=== PATIENT | male | born 1960 | race Caucasian/White ===

== ENCOUNTER → 2018-11-13 | Outpatient (CLI) | payer OTHER ==
--- NOTE | 2018-11-13 15:12 | Diagnostic Imaging Report ---
Right shoulder radiographs-2 views HISTORY: Chronic right shoulder pain. COMPARISON: None FINDINGS: Bones: No evidence of acute fracture or malalignment. Joints: Mild degenerative changes of the right glenohumeral and acromioclavicular joints with joint space narrowing. Soft tissues: The soft tissues appear unremarkable. IMPRESSION: No acute osseous abnormality. Mild right glenohumeral and AC joint osteoarthritis. Signed by: Dr. Lizeth Lindsay MD on 11/13/2018 3:09 PM
--- NOTE | 2018-11-13 15:14 | Diagnostic Imaging Report ---
HIP RIGHT 2-3 VW (+/- PELVIS) - 3 views HISTORY: Pain COMPARISON: None available. FINDINGS: See impression. IMPRESSION: No acute fracture or dislocation of the right hip. Degenerative changes of bilateral hip joints, marked by joint space narrowing and osteophytosis. Signed by: Dr. Nii Rutherford MD on 11/13/2018 3:11 PM
== END ==
LOC: RAD 14:09
PROVIDERS: ATTEND Family Medicine
DX: M25.511 Pain in right shoulder (principal); M25.551 Pain in right hip